=== PATIENT | male | born 1960 | race Caucasian/White ===

== ENCOUNTER 2021-07-14 04:06 | Day surgery (SDC) | payer OTHER ==
[2021-07-13 17:00] VITALS: BMI 27.6
[2021-07-14 13:22] VITALS: PULSE 84; TEMP 97.1
[2021-07-14 14:19] VITALS: BP 181/92
== END 2021-07-14 15:23 | disposition home or self-care (01) ==
LOC: JASU-SURG 04:06
PROVIDERS: ATTEND Pain Medicine Pain Medicine
DX: Z53.8 Procedure and treatment not carried out for other reasons (principal)
CPT/HCPCS: 76000-TC-FY